=== PATIENT | female | born 1960 | race Native Hawaiian/Other Pacific Islander ===

== ENCOUNTER 2023-07-07 09:57 | Outpatient (CLI) | payer OTHER | END 2023-07-07 19:06 | disposition home or self-care (01) | LOC: MAMMO 09:57 | PROVIDERS: ATTEND Nurse Practitioner Family | DX: Z12.31 Encounter for screening mammogram for malignant neoplasm of breast (principal); R94.6 Abnormal results of thyroid function studies; R01.1 Cardiac murmur, unspecified; R00.2 Palpitations ==